=== PATIENT | female | born 1980 | race Caucasian/White ===

== ENCOUNTER 2016-12-19 06:00 | Inpatient (IN) | payer OTHER ==
[2016-12-19] MEDS ORDERED: CARBOPROST TROMETHAMINE 250 MCG/ML 1 ML AMP IM PRN (06:39)
[2016-12-19] MEDS ORDERED: LIDOCAINE 1% (PF) 10 MG/ML (30 ML SDV) SQ PRN (06:39)
[2016-12-19] MEDS ORDERED: TERBUTALINE 1 MG/ML VIAL SQ PRN (06:39)
[2016-12-19] MEDS ORDERED: OXYTOCIN 10 UNIT/ML 1 ML VIAL IM PRN (06:39)
[2016-12-19] MEDS ORDERED: METHYLERGONOVINE 0.2 MG/ML 1 ML AMP IM PRN (06:39)
[2016-12-19] MEDS ORDERED: OXYTOCIN 30 UNITS/500 ML NS 30 UNIT in SALINE 1 500ML.BAG IV SCH (06:45)
[2016-12-19 06:54] LABS: Anisocytosis Slight; Basophils # (A) 0.1 k/uL (0-0.2); Basophils % (A) 0 %; CH 25.5; CHCM 33.6; Eosinophils # (A) 0.1 k/uL (0-0.7); Eosinophils % (A) 1 %; HCT 32.4 % (34.0-46.0); HDW 3.46; HGB 10.9 gm/dL (11.4-16.0); Luc # (Auto) 0.25; Luc % (Auto) 2; Lymphocytes # (A) 1.5 k/uL (1.0-4.8); Lymphocytes % (A) 12 %; MCH 25.5 pg (25.0-35.0); MCHC 33.5 g/dL (31.0-37.0); Microcytosis Slight; Monocytes # (A) 0.7 k/uL (0-1.0); Monocytes % (A) 6 %; Neutrophils # (A) 9.3 k/uL (1.3-7.7); Neutrophils % (A) 79 %; Poikilocytosis Slight; RBC 4.26 m/uL (3.80-5.40); RDW 16.1 % (11.5-15.5); WBC 11.8 k/uL (3.8-10.6); WBC (Perox) 11.99
[2016-12-19 07:02] VITALS: BMI 36.8
[2016-12-19] MEDS: LACTATED RINGERS 1,000 ML IV SCH ×2 (07:18→10:37)
[2016-12-19] MEDS ORDERED: BUTORPHANOL 1 MG/ML 1 ML VIAL IV PRN (08:59)
--- NOTE | 2016-12-19 09:05 | P.HPOB ---
History of Present Illness H&P Date: 12/19/16 Chief Complaint: 39-6/7 weeks, elective induction The patient is a 36-year-old 4 para 2011 admitted at 39-6/7 weeks as established by last menstrual period and confirmed by 18 week ultrasound. She is admitted for elective induction with a very favorable cervix. Her has been uncomplicated and group B strep status is negative. She does fall into the category of advanced maternal age and declined testing. Obstetrical history 4 para 2011 with 2 term vaginal deliveries without complications and one elective interruption of . EDC of 12/20/2016 was established by last menstrual period and confirmed by an 18 week ultrasound. Laboratory workup demonstrates a blood type of A+ with a negative antibody screen. Rubella status is immune. All other laboratory workup was within normal limits. Early Glucola was elevated but followed by a normal three -hour glucose tolerance test. Second trimester Glucola was within normal limits. Group B strep status is negative. Gynecologic history is unremarkable with no history of any infections to include STDs. Review of Systems Review of systems is confined to history of present illness. Past Medical History History of Any Multi-Drug Resistant Organisms: None Reported Past Surgical History: Tonsillectomy Past Anesthesia/Blood Transfusion Reactions: No Reported Reaction Past Psychological History: No Psychological Hx Reported Smoking Status: Never smoker - Past Family History Mother Family Medical History: Hypertension Medications and Allergies Home Medications Medication Instructions Recorded Confirmed Type Pnv with Ca,No.72/Iron/FA 1 each PO DAILY 12/19/16 12/19/16 History [ Plus Tablet] Allergies Allergy/AdvReac Type Severity Reaction Status Date / Time morphine AdvReac Rash/Hives Verified 12/19/16 06:38 Exam - Vital Signs Vital signs: Vital Signs Temp Pulse Resp BP Pulse Ox 12/19/16 06:30 97.5 F L 79 18 122/73 96 Intake and Output 12/18/16 12/19/16 12/19/16 22:59 06:59 14:59 Other: Weight 94.347 kg In general, this is a well-developed, well-nourished white female in no acute distress. Her heart has a regular rhythm and rate without murmur. Her lungs are clear to auscultation bilaterally in all cruz. Her abdomen is gravid, nondistended, has normal active bowel sounds, is soft, nontender, and without any palpable masses aside from uterine fundus. Her extremities are without any cyanosis, clubbing, or significant edema and are nontender to palpation bilaterally. Digital cervical examination on straights her cervix to be 4-5 cm dilated, 60% effaced, the vertex in presentation at -2 station. Artificial rupture of membranes is carried out demonstrate clear fluid. Results Result Diagrams: 12/19/16 06:39 Abnormal Lab Results - Last 24 Hours (Table) 12/19/16 Range/Units 06:39 WBC 11.8 H (3.8-10.6) k/uL Hgb 10.9 L (11.4-16.0) gm/dL Hct 32.4 L (34.0-46.0) % MCV 76.0 L (80.0-100.0) fL RDW 16.1 H (11.5-15.5) % Neutrophils # 9.3 H (1.3-7.7) k/uL Assessment and Plan (1) Term Status: Acute Plan: The patient is admitted for elective induction of labor. She understands that there is a perhaps slightly increased risk for delivery under elective circumstances. Her cervix, however, is very favorable. As result, Pitocin augmentation has been started. She will continue to have close maternal and surveillance and expectant management will be practiced. She is a good candidate for either IV or epidural analgesia, whichever she may choose
[2016-12-19] MEDS ORDERED: fentaNYL (PF) 50 MCG/ML 5 ML AMP ONE (10:09)
[2016-12-19] MEDS ORDERED: BUPIVACAINE (PF) 0.25% 30 ML VIAL ONE (10:09)
[2016-12-19] MEDS ORDERED: SODIUM CHLORIDE 0.9% 100 ML BAG ONE (10:09)
[2016-12-19] MEDS ORDERED: BUPIVACAINE (PF) 0.25% 25 ML, fentaNYL (PF) 200 MCG in SODIUM CHLORIDE 0.9% 71 ML EPIDURAL ONE (10:24)
[2016-12-19] MEDS ORDERED: diphenhydrAMINE 50 MG/ML 1 ML VIAL IVP PRN ×2 (15:52)
[2016-12-19] MEDS ORDERED: Acetaminophen-Codeine 300-30mg TAB PO PRN ×2 (15:52)
[2016-12-19] MEDS ORDERED: WITCH HAZEL 1 EACH MED..PAD TOPICAL PRN (15:52)
[2016-12-19] MEDS ORDERED: BENZOCAINE/MENTHOL SPRAY 1 GM/SPRAY AEROSOL TOPICAL PRN (15:52)
[2016-12-19] MEDS ORDERED: diphenhydrAMINE 50 MG CAP PO PRN (15:52)
[2016-12-19] MEDS ORDERED: HYDROCORTISONE 2.5% RECTAL CREAM 30 GM TUBE RECTAL PRN (15:52)
[2016-12-19] MEDS ORDERED: LANOLIN CREAM 5 GM TUBE TOPICAL PRN (15:52)
[2016-12-19] MEDS ORDERED: SIMETHICONE 80 MG CHEWABLE PO PRN (15:52)
[2016-12-19] MEDS ORDERED: ACETAMINOPHEN TAB 325 MG TAB PO PRN (15:52)
[2016-12-19] MEDS ORDERED: ZOLPIDEM 5 MG TAB PO PRN (15:52)
[2016-12-19] MEDS ORDERED: diphenhydrAMINE 25 MG CAP PO PRN (15:52)
--- NOTE | 2016-12-19 15:57 | P.PROBDLV ---
Vaginal Delivery Note - . Vaginal Delivery Note: The patient is a 36-year-old 4 para 2011 admitted at 39-6/7 weeks by good dating parameters perches admitted for elective induction of labor with all signs reassuring. Her has been uncomplicated and group B strep status is negative. She did fall into the category of advanced maternal age and declined testing. On labor and delivery, she had Pitocin augmentation started followed by artificial rupture of membrane stem showing clear fluid. She made relatively steady progress through the latent phase and had an epidural catheter placed for analgesia. She then progressed steadily through the active phase of labor to complete and approximate 0 station. She pushed for approximate 40 minutes to a normal spontaneous vaginal delivery of a viable 9 lbs. 11 oz. baby girl with Apgars of 9 at 1 minute and 9 at 5 minutes delivered in the direct occiput anterior position. The placenta was delivered manually, intact, and grossly normal although the membranes were lacerated during manual delivery. There was a grossly normal, centrally inserted three- vessel cord. A second-degree midline episiotomy had been cut for the delivery and was repaired in standard fashion using 3-0 chromic catgut without difficulty. Estimated blood loss for the case was approximately 300 mL. There were no complications aside from the need for manual extraction of the placenta. All sponge, instrument, and needle counts were correct. Both mother and are resting comfortably in recovery.
[2016-12-19] MEDS: SENNOSIDES-DOCUSATE SODIUM 1 EACH TAB PO SCH (21:16)
[2016-12-19] MEDS: IBUPROFEN 600 MG TAB PO PRN (21:16)
[2016-12-20] MEDS: IBUPROFEN 600 MG TAB PO PRN ×2 (03:41→12:19)
[2016-12-20] MEDS: SENNOSIDES-DOCUSATE SODIUM 1 EACH TAB PO SCH (08:01)
[2016-12-20 08:13] VITALS: RESP 16
--- NOTE | 2016-12-20 08:51 | P.DS ---
Providers Date of admission: 12/19/16 06:21 Expected date of discharge: 12/20/16 Attending physician: Raza Chavarria Primary care physician: Stated None - Discharge Diagnosis(es) (1) Term Current Visit: Yes Status: Acute (2) Normal spontaneous vaginal delivery Current Visit: Yes Status: Acute Hospital Course: The patient is a 36-year-old 4 para 2012 admitted at 39-6/7 weeks by good dating parameters for an elective induction. Her was uncomplicated though she did fall into the category of advanced maternal age and declined testing. On labor and delivery, she had Pitocin started followed by artificial rupture of membranes. She made progress through the course of labor to complete having had an epidural catheter placed at the onset of active phase. She pushed to a normal spontaneous vaginal delivery of a viable 9 lbs. 11 oz. baby girl with Apgars of 9 at 1 minute and 9 at 5 minutes. Her course was unremarkable vital signs remaining stable and her temperature was afebrile throughout. She is deemed stable for discharge by day #1 and was discharged home to follow-up in the office in 6 weeks ' time routinely. Discharge instructions included calling for any significantly increased bleeding or foul-smelling lochia, significantly increased fever abdominal pain, perineal complaints, breast complaints, or anything else that concerned her. She was additionally instructed to have nothing in the vagina for at least 6 weeks time to include intercourse. She understood her instructions and agrees follow up as noted above. Discharge medications included continued vitamins as she has opted to breast- feed. She otherwise was to take [id number] analgesic pain medications as necessary. Maternal blood type is A+ and rubella status is immune. Procedures: #1. Pitocin induction #2. Artificial rupture of membranes #3. Normal spontaneous vaginal delivery #4. Second-degree midline episiotomy and repair # 5. Manual extraction of the placenta Patient Condition at Discharge: Good Plan - Discharge Summary Discharge Medication List Pnv with Ca,No.72/Iron/FA [ Plus Tablet] 1 each PO DAILY 12/19/16 [ History] Follow up Appointment(s)/Referral(s): Raza Chavarria MD [STAFF PHYSICIAN] - 6 Weeks Discharge Disposition: HOME SELF-CARE
[2016-12-20 16:39] VITALS: BP 120/80; PULSE 90; TEMP 98
== END 2016-12-20 16:15 | disposition home or self-care (01) | DRG 775 ==
LOC: 4FBP 06:21
PROVIDERS: ADMIT Obstetrics & Gynecology; ATTEND Obstetrics & Gynecology
PROC: 10E0XZZ Delivery of Products of Conception, External Approach (ICD-10-PCS; principal; 2016-12-19)
PROC: 10907ZC Drainage of Amniotic Fluid, Therapeutic from Products of Conception, Via Natural or Artificial Opening (ICD-10-PCS; 2016-12-19)
PROC: 0W8NXZZ Division of Female Perineum, External Approach (ICD-10-PCS; 2016-12-19)
DX: O80 Encounter for full-term uncomplicated delivery (principal); Z82.49 Family history of ischemic heart disease and other diseases of the circulatory system; Z37.0 Single live birth; Z3A.39 39 weeks gestation of pregnancy
CPT/HCPCS: 85025; 88307

== ENCOUNTER → 2024-03-21 | Day surgery (SDC) | payer OTHER ==
--- NOTE | 2024-03-19 01:13 | HP ---
HISTORY AND PHYSICAL DATE OF SCHEDULED SURGERY: 03/21/2024. HISTORY OF PRESENT ILLNESS: The patient is a 43-year-old 4, para 3-0-1-3, who presents to the office with many months' history of significant dysfunctional uterine bleeding and menorrhagia despite using a NuvaRing. Ultrasound showed a thickened endometrium with a possible polyp as well as possible adenomyosis. We discussed multiple different options for treatment for both the short and the intermission coordinator to include hysteroscopy with D and C as well as placement of Mirena for long-term management of bleeding while still providing her with excellent form of contraception. She has agreed to this plan. PAST MEDICAL HISTORY: Significant only for seasonal asthma and a history of some abnormal Pap smears. PAST SURGICAL HISTORY: Significant for tonsillectomy in 2002 and she also had an elective interruption of historically. There have been no anesthetic concerns. OBSTETRICAL HISTORY: 4, para 3-0-1-3 with 3 term vaginal deliveries without complications. One early interruption of which was uncomplicated. Current method of contraception has been NuvaRing. GYNECOLOGIC HISTORY: Unremarkable except as noted in history of present illness. FAMILY HISTORY: Noncontributory. SOCIAL HISTORY: The patient is and is a nurse at [employer]. She is a nonsmoker and denies any significant alcohol or any other social concerns. CURRENT MEDICATIONS: Include NuvaRing as directed. ALLERGIES: Morphine caused hives and she has seasonal allergies as well. REVIEW OF SYSTEMS: Confined to history of present illness. PHYSICAL EXAMINATION: VITAL SIGNS: Stable. The patient is afebrile. GENERAL: This is a well-developed, well-nourished white female, in no acute distress. HEART: Has regular rhythm and rate without murmur. LUNGS: Clear to auscultation bilaterally in all cruz. ABDOMEN: Nondistended, has normoactive bowel sounds, soft, nontender, without any palpable masses, hepatosplenomegaly, or hernias. EXTREMITIES: Without any cyanosis, clubbing, or edema and are nontender to palpation bilaterally. PELVIC: Demonstrates normal external genitalia and BUS with normal vaginal mucosa and cervix. There is no cervical motion tenderness. Uterus is 5 weeks in size, mid plane, mobile, nontender, normal in shape. The adnexa are normal and nontender without mass bilaterally. ASSESSMENT AND PLAN: Dysfunctional uterine bleeding with menorrhagia: After discussion regarding options, we have opted to proceed with diagnostic hysteroscopy, dilation and curettage, possible endometrial polypectomy and subsequent placement of Mirena IUD. The risks and complications of the procedures have been thoroughly discussed including risk for bleeding, bleeding requiring transfusion, infection, injury to local structures to include uterine perforation, Asherman syndrome. She has understood all this and agreed to proceed. CALISTA / JASVIRN: [id number] /
[~2024-03-21] MED LIST: ACETAMINOPHEN TAB 325 MG TAB PO PRN; HYDROmorphone 0.5 MG/0.5 ML SYRINGE IVP PRN; IBUPROFEN 600 MG TAB PO PRN; KETOROLAC 15 MG/ML 1 ML VIAL IVP PRN; LACTATED RINGERS 1,000 ML IV SCH; LIDOCAINE 1% (10MG/ML) FOR IV START INTRADERMA PRN; LIDOCAINE 1% INJ 10MG/ML (20 ML MDV) ONE; METOCLOPRAMIDE 5 MG/ML 2 ML VIAL IVP PRN; MIDAZOLAM 2 MG/2 ML VIAL IV PRN; ONDANSETRON 4 MG/2 ML VIAL IVP PRN; PROPOFOL 10 MG/ML 20 ML VIAL IV ONE; Pre Op ABX Message 1 EACH MISC MISCELLANE ONE; SIMETHICONE 80 MG CHEWABLE PO PRN; diphenhydrAMINE 50 MG/ML 1 ML VIAL IVP PRN; fentaNYL (PF) 50 MCG/ML 2 ML AMP IVP PRN; fentaNYL (PF) 50 MCG/ML 2 ML AMP ONE
[2024-03-21] MEDS: DEXAMETHASONE SOD PHOSPHATE 4 MG/ML 1 ML VIAL IV ONE (07:39)
[2024-03-21] MEDS: ONDANSETRON 4 MG/2 ML VIAL IVP ONE (07:39)
[2024-03-21] MEDS: LACTATED RINGERS 1,000 ML IV SCH (07:39)
[2024-03-21] MEDS: IV FLUID CONTINUATION 1,000 ML IV ONE (07:41)
--- NOTE | 2024-03-21 10:19 | P.OP ---
Date of Procedure: 03/21/24 Preoperative Diagnosis: #1. Dysfunctional uterine bleeding Postoperative Diagnosis: Same Procedure(s) Performed: #1. Diagnostic hysteroscopy #2. Dilation and curettage #3. Placement of Mirena intrauterine device Anesthesia: other (General by LMA) Surgeon: Raza Chavarria Estimated Blood Loss (ml): 10 IV fluids (ml): 200 Urine output (ml): 200 Pathology: other (Endometrial curettings) Condition: stable Disposition: PACU Operative Findings: Preoperative pelvic examination demonstrated roughly 5 weeks slightly retroverted mobile normal shaped uterus with normal adnexa bilaterally. Intraoperatively, the uterus sounded to approximately 9 cm. Using the hysteroscope, there was no pathology seen throughout the pelvis. The bilateral tubal ostia were clearly seen. There was no evidence of a polyp. Curettage produced a small amount of tissue with the typical gritty texture encountered throughout. The IUD was placed without difficulty. The patient is a potential candidate for vaginal hysterectomy should it become necessary in the future. Description of Procedure: The patient was prepped and draped in usual fashion after general anesthesia was administered by the anesthesiologist. A weighted speculum was placed and the bladder drained of approximately 200 cc of clear re urine. The anterior lip of the cervix was grasped with a single-tooth tenaculum and uterus sounded to 9 cm as noted above. Serial dilation was carried out to admit the diagnostic hysteroscope which was placed into the uterus and the cavity distended with sorbitol. The findings are as noted above with no evidence of any pathology throughout the entire cavity. The bilateral tubal ostia were clearly seen. After adequate hysteroscopy been carried out, the scope was set aside and a Telfa introduced into the vagina. Medium sharp curette was introduced and thorough and circumferential curettage was carried out onto a Telfa placed in the vagina as noted above. After collecting the specimen, the Mirena IUD was opened and inserted in standard fashion without difficulty. The strings were trimmed to approximately 4 cm. All instrumentation was then removed. There was minimal ongoing bleeding from the cervix and no ongoing bleeding from the tenaculum sites. Estimated blood loss for the case was approximately 10 cc or less. There were no complications. All sponge, instrument, and needle counts were correct. The patient tolerated the procedure well and proceeded to the recovery room in stable condition.
[2024-03-21 10:26] VITALS: TEMP 97.8
[2024-03-21 10:58] VITALS: RESP 16
[2024-03-21 11:19] VITALS: BP 153/82; PULSE 79
== END | disposition home or self-care (01) ==
LOC: OR 06:59
PROVIDERS: ATTEND Obstetrics & Gynecology
DX: N93.8 Other specified abnormal uterine and vaginal bleeding (principal); N92.0 Excessive and frequent menstruation with regular cycle; J45.909 Unspecified asthma, uncomplicated; K21.9 Gastro-esophageal reflux disease without esophagitis; Z88.5 Allergy status to narcotic agent
CPT/HCPCS: 81025; 88305; 58558; 58300; J1100; J2405; J2001; J3010; J2704